=== PATIENT | female | born 1950 | race Caucasian/White ===

== ENCOUNTER → 2020-02-10 08:00 | Outpatient (CLI) | payer MEDICARE, BC, SELFPAY | PROVIDERS: PCP Family Medicine; Referring Provider Family Medicine; Visit Provider Family Medicine | DX: Z03.818 Encounter for observation for suspected exposure to other biological agents ruled out (principal); Z11.59 Encounter for screening for other viral diseases | CPT/HCPCS: 87635; U0003 ==

== ENCOUNTER → 2020-02-24 15:00 | Outpatient (CLI) | payer MEDICARE, BC, SELFPAY | PROVIDERS: Referring Provider Family Medicine; Visit Provider Family Medicine | DX: Z03.818 Encounter for observation for suspected exposure to other biological agents ruled out (principal); Z11.59 Encounter for screening for other viral diseases | CPT/HCPCS: 87635; U0003 ==

== ENCOUNTER → 2020-03-09 16:27 | Outpatient (CLI) | payer MEDICARE, BC, SELFPAY | PROVIDERS: Referring Provider Family Medicine; Visit Provider Family Medicine | DX: Z03.818 Encounter for observation for suspected exposure to other biological agents ruled out (principal); Z11.59 Encounter for screening for other viral diseases | CPT/HCPCS: 87635; U0003 ==

== ENCOUNTER → 2020-03-23 09:42 | Outpatient (CLI) | payer MEDICARE, BC, SELFPAY | PROVIDERS: Referring Provider Family Medicine; Visit Provider Family Medicine | DX: Z03.818 Encounter for observation for suspected exposure to other biological agents ruled out (principal); Z11.59 Encounter for screening for other viral diseases | CPT/HCPCS: 87635; U0003 ==

== ENCOUNTER → 2020-04-06 11:48 | Outpatient (CLI) | payer MEDICARE, BC, SELFPAY | PROVIDERS: Referring Provider Family Medicine; Visit Provider Family Medicine | DX: Z03.818 Encounter for observation for suspected exposure to other biological agents ruled out (principal); Z11.59 Encounter for screening for other viral diseases | CPT/HCPCS: 87635; U0003 ==

== ENCOUNTER 2024-01-27 17:33 | Emergency (ER) | payer MEDICARE, BC, SELFPAY ==
[2024-01-27 17:35] VITALS: BP 174/104; PULSE 84; RESP 18; TEMP 37.1; O2SAT 98; BMI 36.1
--- NOTE | 2024-01-27 20:14 | EDS_ITS ---
HPI History of Present Illness Chief Complaint: General Illness [facility] Medical History (Updated 01/27/24 @ 23:[address] 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 Allergy/AdvReac Type Severity Reaction Status Date / Time Latex, Natural Rubber Allergy Intermediate Itching Verified 01/27/24 17:37 Sulfa (Sulfonamide Allergy Intermediate Itching Verified 01/27/24 17:37 Antibiotics) Social History Smoking Status: Never smoker EXAM Physical Exam Const Vital Signs: 01/27/24 17:35 01/27/24 17:35 01/27/24 20:19 Temperature 98.7 F 98.7 F Temperature Source Oral Temporal Pulse Rate 84 84 83 Respiratory Rate 18 18 16 Respiratory Effort Respiratory Pattern Blood Pressure 174/104 H 174/104 H 165/88 H Blood Pressure Mean 127 127 113 Pulse Ox 98 98 95 Oxygen Delivery Method Room Air Room Air Room Air 01/27/24 20:19 01/27/24 22:00 Temperature Temperature Source Pulse Rate 85 Respiratory Rate 19 H Respiratory Effort Normal Respiratory Pattern Normal Blood Pressure 135/89 H Blood Pressure Mean 104 Pulse Ox 93 Oxygen Delivery Method MDM MDM MDM Narrative Medical decision making narrative: HISTORY OF PRESENT ILLNESS: 73-year-old female complains of throat numbness. Notes symptoms have been ongoing 7 days intermittently. Notes nausea and weakness as well. No she was COVID-positive 14 days ago. No falls, low back pain. REVIEW OF SYSTEMS: Pertinent positives: Numbness from shoulders down to the toes Pertinent negatives: As per HPI PHYSICAL EXAM: Nursing triage notes reviewed, Vital signs reviewed Constitutional: please see mdm HENT: MMM Eyes: Pupils equal round and reactive to light, Extraocular muscles intact Neck: No stridor, no JVD, full neck ROM Lungs: Clear to auscultation, No wheezing or rales. No increased work of breathing, no conversational dyspnea, no accessory muscle use, no nasal flaring. No respiratory distress noted Heart: Regular rate and rhythm, No murmurs, No rubs and No gallops, 2+ distal pulses (radial, femoral, posterior tibial) in all extremities Abdomen: Soft, there is no tenderness, rigidity, rebound or guarding, no obvious peritoneal signs, no palpable pulsatile abdominal masses, no auscultated abdominal bruit : No CVAT Extremities: No edema Neuro: Alert and oriented x3, neuro exam at baseline, cranial nerves II through XII are intact. No pain with extraocular muscle movement. There is negative test of skew. 5 of 5 strength in upper and lower extremities in flexion extension. Intact sensation to light touch in upper and lower extremity dermatomes. No truncal or extremity ataxia. No dysdiadochokinesia. Normal gait. 2+ reflexes in upper and lower extremities. No meningeal signs. Negative Babinski. NIH of 0. Intact sensation L1-S1 dermatomal distributions. Intact 5/5 strength in hip flexion (T12-L3). Knee extension (L2-L4). Ankle dorsiflexion (L4-L5). Ankle plantar flexion (S1). Great toe extension (L5). 2+ patellar and Achilles DTRs. Skin: No rash or lesions noted. MEDICAL DECISION MAKING: Chief Complaint: Numbness External records reviewed: Imaging reviewed: No recent advanced imaging of the brain Factors affecting care: Cervical spine disc disorder Social determinants of health: Elderly MDM Narrative: The patient was initially hypertensive with a blood pressure 174/104 otherwise afebrile and nontoxic-appearing. No focal neurologic deficits noted on exam. Patient has full sensation. I considered the following differential diagnosis: ICH, CVA, anemia, electrolyte disturbance, intra-abdominal pathology, residual effects from COVID-19/long COVID, epidural abscess, transverse myelitis, spine fracture dislocation I obtained a broad lab and imaging workup to further elucidate etiology of patient complaint. I considered , lesion of spine transverse myelitis or other inflammatory co ndition of the spine patient had no signs of focal neurologic deficit, bowel or bladder incontinence, red flag symptomatology to suggest either diagnosis. There is no indication for MRI at this time. ALL IMAGES (IF OBTAINED) HAVE BEEN PERSONALLY REVIEWED AND INTERPRETED BY MYSELF. CBC without leukocytosis, severe anemia, no thrombocytopenia. BMP without evidence of significant electrolyte abnormalities, no anion gap, no acute kidney injury. High-sensitivity troponin is negative, no evidence of myocardial ischemia EKG with normal sinus rhythm, normal axis, normal intervals, no STEMI CT scan of the thoracic lumbar spine shows no evidence of obvious bony abnormality On reevaluation patient's blood pressure improved 135/89. Patient has no focal deficits on repeat neurologic assessment. No clear etiology I suspect may be related to recent COVID infection. I do not suspect this is based on my lesion of spine, epidural abscess, transverse myelitis. CT proves no fracture dislocation of the spine. PCP follow-up was recommended. Strict return precautions were discussed. The patient and/or family, caregivers express understanding. The patient and/or family, caregivers agrees with the plan. Shared decision making: I will have a discussion with the patient and or visitors regarding risk/benefits of further testing or admission. They will be made aware of of the risk/benefits inherent in this decision they will be given the opportunity to voice understanding. Total critical care time today provided was at least 0 minutes. This excludes separately billable procedures. Critical care time (if documented) is secondary to the patient having high probability of clinically significant/life threatening deterioration in the patient's condition which required my urgent intervention. Impression: 1. Paresthesia 2. History of fibromyalgia Dispo: Discharge home This note was generated with [employer] dictation software. It may contain incorrect words, spelling, and punctuation that were not noted in review of the chart prior to signing. Lab Data Labs: Laboratory Results - last 24 hr 01/27/24 21:16 WBC 7.4 RBC 4.60 Hgb 13.2 Hct 40.9 MCV 88.9 MCH 28.7 MCHC 32.3 RDW Std Deviation 43.6 RDW Coeff of Jaziel 13.5 Plt Count 309 MPV 10.9 Sodium 138 Potassium 3.7 Chloride 102 Carbon Dioxide 29.0 Anion Gap 7 BUN 9 Creatinine 0.85 Estim Creat Clear Calc 55.00 Est GFR (MDRD) Af Amer 84 Est GFR (MDRD) Non-Af 70 BUN/Creatinine Ratio 10.6 Glucose 110 H Calcium 9.7 Troponin I High Sens 12 Radiography Diagnostic Testing: Clinical Impression(s) from Imaging Studies Lumbar Spine CT 01/27/24 21:02 IMPRESSION: 1. Multilevel degenerative changes resulting in moderate to severe multilevel spinal canal stenosis evident worst at L4-L5. 2. Colonic diverticulosis. Electronically Signed: Otto Perez DO at 22:34 EDT , Thoracic Spine CT 01/27/24 21:02 IMPRESSION: 1. Multilevel degenerative changes resulting in moderate to severe multilevel spinal canal stenosis evident worst at L4-L5. 2. Colonic diverticulosis. Electronically Signed: Otto Sawyer KarangueroeliseDO clayton at 22:30 EDT , Discharge Plan Triage Chief Complaint: General Illness ED Provider: Moisés Restrepo Dx/Rx/DC Orders Clinical Impression: Paresthesias Instructions: ED Paraesthesias Primary Care Provider: Zhao Fuentes Referrals: Zhao Fuentes MD [Primary Care Provider] - Activity Restrictions/Additional Instructions: Thank you for trusting us with your care today! Please take Tylenol (2 pills, 650 mg), ibuprofen (2 pills, 400 mg) every 6 hours as needed for pain and fever control. Please return to the emergency department if your symptoms change or worsen. Please follow with your primary care physician for further outpatient evaluation and management. Print Language: Khmer Disposition Disposition: Home, Self Care
[2024-01-27 20:19] VITALS: BP 165/88; PULSE 83; RESP 16; O2SAT 95
--- NOTE | 2024-01-27 20:21 | ED.RN ---
pt states she has generalized, intermittent numbness from the waist down and difficulty walking for approx 1.5 weeks.
--- NOTE | 2024-01-27 21:02 | CT_ITS ---
EXAM: CT THORACIC SPINE WITHOUT INTRAVENOUS CONTRAST CLINICAL INDICATION: back pain TECHNIQUE: Helically acquired images were obtained of the thoracic spine without intravenous contrast. 2D reformats were reviewed. This CT exam was performed using one or more of the following dose reduction techniques: automated exposure control, adjustment of the mA and/or kV according to patient size, and/or use of iterative reconstruction technique. COMPARISON: No relevant prior studies available. FINDINGS: VERTEBRAE: Multilevel facet arthrosis and endplate osteophytosis. No discrete lytic or blastic abnormality. No evidence of acute fracture or traumatic subluxation. DISCS/SPINAL CANAL/NEURAL FORAMINA: Degenerative changes are partially visualized in the lower cervical region. Mild multilevel intervertebral disc height loss. Few disc herniations are present, most prominent at T8-T9 where there is associated annular calcifications contributing to mild left neural foraminal narrowing and mild spinal canal stenosis. Otherwise, no significant spinal canal or neural foraminal stenosis is identified. VASCULATURE: Atherosclerosis. LYMPH NODES: No significant abnormality. No retroperitoneal adenopathy. LUNGS AND PLEURAL SPACES: Normal as visualized. No mass. No consolidation or edema. No pleural effusion or thickening. No pneumothorax. HEART: Coronary artery calcifications. IMPRESSION: Multilevel degenerative changes. No acute osseous abnormalities. See details above. EXAM: CT LUMBAR SPINE WITHOUT INTRAVENOUS CONTRAST CLINICAL INDICATION: back pain TECHNIQUE: Helically acquired images were obtained of the lumbar spine without intravenous contrast. 2D reformats were reviewed. This CT exam was performed using one or more of the following dose reduction techniques: automated exposure control, adjustment of the mA and/or kV according to patient size, and/or use of iterative reconstruction technique. COMPARISON: No relevant prior studies available. FINDINGS: VERTEBRAE: No fracture, spondylolysis, or spondylolisthesis. Multilevel facet arthrosis and endplate osteophytosis. No discrete lytic or blastic abnormality. DISCS/SPINAL CANAL/NEURAL FORAMINA: There are multiple small disc bulges and/or herniations most evident at L3-L4, L4-L5, and L5-S1 resulting in moderate to severe spinal canal stenosis at these levels and at least moderate neural foraminal narrowing. Mild intervertebral disc height loss at L5-S1. Otherwise, the spaces are maintained in height. VASCULATURE: Vascular calcifications. Visualized abdominal aorta is not dilated. LYMPH NODES: No significant abnormality. No retroperitoneal adenopathy. STOMACH AND BOWEL: Colonic diverticulosis. CT/Spine Lumbar without Contrast IMPRESSION: 1. Multilevel degenerative changes resulting in moderate to severe multilevel spinal canal stenosis evident worst at L4-L5. 2. Colonic diverticulosis. Electronically Signed: Otto Perez DO at 22:34 EDT ,
--- NOTE | 2024-01-27 21:02 | CT_ITS ---
EXAM: CT THORACIC SPINE WITHOUT INTRAVENOUS CONTRAST CLINICAL INDICATION: back pain TECHNIQUE: Helically acquired images were obtained of the thoracic spine without intravenous contrast. 2D reformats were reviewed. This CT exam was performed using one or more of the following dose reduction techniques: automated exposure control, adjustment of the mA and/or kV according to patient size, and/or use of iterative reconstruction technique. COMPARISON: No relevant prior studies available. FINDINGS: VERTEBRAE: Multilevel facet arthrosis and endplate osteophytosis. No discrete lytic or blastic abnormality. No evidence of acute fracture or traumatic subluxation. DISCS/SPINAL CANAL/NEURAL FORAMINA: Degenerative changes are partially visualized in the lower cervical region. Mild multilevel intervertebral disc height loss. Few disc herniations are present, most prominent at T8-T9 where there is associated annular calcifications contributing to mild left neural foraminal narrowing and mild spinal canal stenosis. Otherwise, no significant spinal canal or neural foraminal stenosis is identified. VASCULATURE: Atherosclerosis. LYMPH NODES: No significant abnormality. No retroperitoneal adenopathy. LUNGS AND PLEURAL SPACES: Normal as visualized. No mass. No consolidation or edema. No pleural effusion or thickening. No pneumothorax. HEART: Coronary artery calcifications. IMPRESSION: Multilevel degenerative changes. No acute osseous abnormalities. See details above. EXAM: CT LUMBAR SPINE WITHOUT INTRAVENOUS CONTRAST CLINICAL INDICATION: back pain TECHNIQUE: Helically acquired images were obtained of the lumbar spine without intravenous contrast. 2D reformats were reviewed. This CT exam was performed using one or more of the following dose reduction techniques: automated exposure control, adjustment of the mA and/or kV according to patient size, and/or use of iterative reconstruction technique. COMPARISON: No relevant prior studies available. FINDINGS: VERTEBRAE: No fracture, spondylolysis, or spondylolisthesis. Multilevel facet arthrosis and endplate osteophytosis. No discrete lytic or blastic abnormality. DISCS/SPINAL CANAL/NEURAL FORAMINA: There are multiple small disc bulges and/or herniations most evident at L3-L4, L4-L5, and L5-S1 resulting in moderate to severe spinal canal stenosis at these levels and at least moderate neural foraminal narrowing. Mild intervertebral disc height loss at L5-S1. Otherwise, the spaces are maintained in height. VASCULATURE: Vascular calcifications. Visualized abdominal aorta is not dilated. LYMPH NODES: No significant abnormality. No retroperitoneal adenopathy. STOMACH AND BOWEL: Colonic diverticulosis. CT/Spine Thoracic without Contras IMPRESSION: 1. Multilevel degenerative changes resulting in moderate to severe multilevel spinal canal stenosis evident worst at L4-L5. 2. Colonic diverticulosis. Electronically Signed: Otto Perez DO at 22:30 EDT ,
--- NOTE | 2024-01-27 21:03 | EKG12_ITS ---
Test Reason : DYSRHYTHMIA Blood Pressure : / mmHG Vent. Rate : 078 BPM Atrial Rate : 078 BPM P-R Int : 164 ms QRS Dur : 080 ms QT Int : 406 ms P-R-T Axes : 023 014 017 degrees QTc Int : 462 ms Normal sinus rhythm Normal ECG Confirmed by BRYANT CHAVEZ, KENYETTA ([id number]), editor sound TRANG SAWYER ([id number]) on 01/29/2024 1:45:58 PM Referred By: Confirmed By:KENYETTA HURTADO MD
[2024-01-27 21:25] LABS: Hematocrit 40.9 % (37-47); Hemoglobin 13.2 g/dL (12.0-15.0); Mean Corp Hgb Conc 32.3 g/dL (32-36); Mean Corpuscular Hgb 28.7 pg (27.0-32.0); Mean Corpuscular Volume 88.9 fL (81-99); Mean Platelet Vol. 10.9 fl (6.2-12.0); Platelet Count 309 K/mm3 (150-450); RBC Distribution Width CV 13.5 % (11.6-14.6); RBC Distribution Width SD 43.6 fl (35.1-43.9); White Blood Count 7.4 K/mm3 (4.4-11.0)
[2024-01-27 21:42] LABS: Anion Gap 7 (5-15); BUN 9 mg/dL (7-18); BUN/Creat Ratio 10.6 RATIO (10-20); Calcium,Total 9.7 mg/dL (8.5-10.1); Chloride 102 mmol/L (98-107); Creatinine, Serum 0.85 mg/dL (0.55-1.02); EST Glomerular Filtration Rate 70 mL/min (>60); Est Glom Filt Rate - Afr Amer 84 mL/min (>60); Glucose 110 mg/dL (74-106); Potassium 3.7 mmol/L (3.5-5.1); Sodium Level 138 mmol/L (136-145); Troponin-I HS 12 pg/mL (3.0-54.0)
[2024-01-27 22:00] VITALS: BP 135/89; PULSE 85; RESP 19; O2SAT 93
== END 2024-01-27 23:56 | disposition home or self-care (01) ==
PROVIDERS: Emergency Provider Emergency Medicine; PCP Family Medicine; Visit Provider Emergency Medicine
DX: R20.2 Paresthesia of skin (principal); Z87.39 Personal history of other diseases of the musculoskeletal system and connective tissue
CPT/HCPCS: 72128; 72131; 80048; 84484; 85027; 93005; 99283

== ENCOUNTER → 2024-11-01 | Outpatient (CLI) | payer MEDICARE, BC, SELFPAY | END | disposition home or self-care (01) | LOC: SL 19:56 | PROVIDERS: PCP Family Medicine; Referring Provider Nurse Practitioner Family; Visit Provider Nurse Practitioner Family | DX: G47.33 Obstructive sleep apnea (adult) (pediatric) (principal) | CPT/HCPCS: 95811 ==